=== PATIENT | female | born 1935 | race Caucasian/White ===

== ENCOUNTER 2017-01-06 14:46 | Emergency (ER) | payer MEDICARE ==
[2017-01-06 15:06] VITALS: BP 159/86
--- NOTE | 2017-01-06 15:18 | UC ---
UC General HPI - HPI Summary HPI Summary: 81 YEAR OLD FEMALE PRESENTS FOR CATHETER REMOVAL AFTER TUMOR SURGERY. THE PATIENT STILL HAS BLOOD CLOTS IN THE URINE SO I WILL HAVE HER WAIT UNTIL THE URINE BECOMES CLEAR. - History of Current Complaint Chief Complaint: UCGU Stated Complaint: CATHETER REMOVAL Time Seen by Provider: 01/06/17 15:10 Hx Obtained From: Patient Onset/Duration: Gradual Onset Onset Severity: Moderate Current Severity: Moderate - Allergy/Home Medications Allergies/Adverse Reactions: Allergies Allergy/AdvReac Type Severity Reaction Status Date / Time Phenobarbital Allergy Severe breathing Verified 01/06/17 15:07 problems? Phenytoin [From Dilantin] Allergy Severe breathing Verified 01/06/17 15:07 problems? Atorvastatin [From Lipitor] AdvReac Unknown Dizziness Verified 01/06/17 15:07 Carbamazepine [From Tegretol] AdvReac Unknown Dizziness Verified 01/06/17 15:07 Doxycycline AdvReac Unknown Dizziness Verified 01/06/17 15:07 Enalapril [From Vasotec] AdvReac Unknown Unknown Verified 01/06/17 15:07 Reaction Details Nifedipine [From Procardia] AdvReac Unknown Unknown Verified 01/06/17 15:07 Reaction Details Alendronate [From Fosamax] AdvReac Unknown Verified 01/06/17 15:07 Reaction Details Penicillin G AdvReac DOESN'T Verified 01/06/17 15:07 WORK Tetanus Toxoids AdvReac Unknown Verified 01/06/17 15:07 Reaction Details NO MRIS Allergy See Comment Uncoded 01/06/17 15:07 kidney dye AdvReac Unknown Unknown Uncoded 01/06/17 15:07 Reaction Details PMH/Surg Hx/FS Hx/Imm Hx Previously Healthy: Yes - Surgical History Surgical History: Yes Surgery Procedure, Year, and Place: BRAIN TUMOR REMOVED IN 1991. BLADDER CANCER SURGERIES X 30 OVER THE PAST 14 YEARS. 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 BILATERAL CATARACTS, hernia repair - Family History Known Family History: Positive: None - Social History Alcohol Use: None Substance Use Type: None Smoking Status (MU): Former Smoker Amount Used/How Often: 1 PPD X 14 YEARS Have You Smoked in the Last Year: No When Did the Patient Quit Smoking/Using Tobacco: 1975 Review of Systems Constitutional: Negative Skin: Negative Eyes: Negative ENT: Negative Respiratory: Negative Cardiovascular: Negative Gastrointestinal: Negative Genitourinary: Other - BLOOD CLOTS IN HER CATHETER Motor: Negative Neurovascular: Negative Musculoskeletal: Negative Neurological: Negative Psychological: Negative All Other Systems Reviewed And Are Negative: Yes Physical Exam Triage Information Reviewed: Yes Appearance: Well-Appearing Vital Signs: Initial Vital Signs Temp 37.5 C 01/06/17 15:03 Pulse 76 01/06/17 15:03 Resp 18 01/06/17 15:03 BP 159/86 01/06/17 15:03 Pulse Ox 97 01/06/17 15:03 Eye Exam: Normal ENT Exam: Normal Dental Exam: Normal Neck exam: Normal Neck: Positive: 1 Respiratory Exam: Normal Cardiovascular Exam: Normal Abdominal Exam: Normal Musculoskeletal Exam: Normal Neurological Exam: Normal Psychological Exam: Normal Skin Exam: Normal Course/Dx - Differential Dx - Multi-Symptom Provider Diagnoses: BLOOD CLOTS IN CATHETER BAG Discharge - Discharge Plan Condition: Stable Disposition: HOME Patient Education Materials: Dale Catheter Placement and Care (ED) Referrals: Nichole Green MD [Primary Care Provider] -
== END 2017-01-06 15:35 | disposition home or self-care (01) ==
LOC: UCEAST 14:46
DX: R31.9 Hematuria, unspecified (principal); Z87.891 Personal history of nicotine dependence
CPT/HCPCS: 99212; G0463

== ENCOUNTER 2017-01-09 09:22 | Emergency (ER) | payer MEDICARE ==
[2017-01-09] MEDS ORDERED: Ipratropium 0.5MG/2.5ML NEB* 0.5 MG/2.5 ML NEB.SOLN INH ONE (10:56)
[2017-01-09] MEDS ORDERED: Albuterol 2.5 MG/3 ML NEB.SOL* (0.083%) INH ONE (10:56)
--- NOTE | 2017-01-09 11:02 | RAD ---
Indication: Wheezing, right lower lobe crackles. 2 views of the chest demonstrate no mediastinal shift. Heart is of normal size and configuration. Calcification of the mitral valve annulus is noted. Lobulated right hemidiaphragm is noted. Overall no changes noted since July 16, 2012. IMPRESSION: No active cardiopulmonary disease is noted.
[2017-01-09 11:23] VITALS: BP 97/55
--- NOTE | 2017-01-09 11:24 | UC ---
Respiratory Complaint HPI - HPI Summary HPI Summary: 81 yo female with chills and cough x days has been wheezing about one week out from bladder surgery (bladdler [place]) no n/v - History of Current Complaint Chief Complaint: UCGeneralIllness Stated Complaint: COUGH CONGESTION Time Seen by Provider: 01/09/17 10:13 Hx Obtained From: Patient Onset/Duration: Gradual Onset, Lasting Days - 4 Timing: Constant Severity Initially: Mild Severity Currently: Moderate Pain Intensity: 0 Pain Scale Used: 0-10 Numeric Character: Cough: Productive - at times Aggravating Factors: Nothing Alleviating Factors: Nothing Associated Signs And Symptoms: Positive: Dyspnea - at times, Fever - caren, Chills , Wheezing, Nasal Congestion Related History: Similar Episode/Dx as: - bronchitis - Allergies/Home Medications Allergies/Adverse Reactions: Allergies Allergy/AdvReac Type Severity Reaction Status Date / Time Phenobarbital Allergy Severe breathing Verified 01/09/17 09:59 problems? Phenytoin [From Dilantin] Allergy Severe breathing Verified 01/09/17 09:59 problems? Atorvastatin [From Lipitor] AdvReac Unknown Dizziness Verified 01/09/17 09:59 Carbamazepine [From Tegretol] AdvReac Unknown Dizziness Verified 01/09/17 09:59 Doxycycline AdvReac Unknown Dizziness Verified 01/09/17 09:59 Enalapril [From Vasotec] AdvReac Unknown Unknown Verified 01/09/17 09:59 Reaction Details Nifedipine [From Procardia] AdvReac Unknown Unknown Verified 01/09/17 09:59 Reaction Details Alendronate [From Fosamax] AdvReac Unknown Verified 01/09/17 09:59 Reaction Details Penicillin G AdvReac DOESN'T Verified 01/09/17 09:59 WORK Tetanus Toxoids AdvReac Unknown Verified 01/09/17 09:59 Reaction Details NO MRIS Allergy See Comment Uncoded 01/09/17 09:59 kidney dye AdvReac Unknown Unknown Uncoded 01/09/17 09:59 Reaction Details PMH/Surg Hx/FS Hx/Imm Hx Previously Healthy: Yes Respiratory History: Bronchitis Cancer History: Other - bladder and multiple myeloma Other Cancer History: bladder and multiple myeloma - Surgical History Surgical History: Yes Surgery Procedure, Year, and Place: BRAIN TUMOR REMOVED IN 1991. BLADDER CANCER SURGERIES X 30 OVER THE PAST 14 YEARS. 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 BILATERAL CATARACTS, hernia repair - Family History Known Family History: Positive: Hypertension - Social History Alcohol Use: None Substance Use Type: None Smoking Status (MU): Former Smoker Amount Used/How Often: 1 PPD X 14 YEARS Have You Smoked in the Last Year: No When Did the Patient Quit Smoking/Using Tobacco: 1975 - Immunization History Most Recent Influenza Vaccination: fall 2015 Review of Systems Constitutional: Fever - caren, Chills, Fatigue Skin: Negative Eyes: Negative ENT: Negative Respiratory: Shortness Of Breath - wheezing, Cough Cardiovascular: Negative Gastrointestinal: Negative Genitourinary: Negative Motor: Negative Neurovascular: Negative Musculoskeletal: Negative Neurological: Negative Psychological: Negative Is Patient Immunocompromised?: No All Other Systems Reviewed And Are Negative: Yes Physical Exam Triage Information Reviewed: Yes Appearance: Well-Appearing, No Pain Distress, Well-Nourished Vital Signs: Initial Vital Signs Temp 99.4 F 01/09/17 10:04 Pulse 66 01/09/17 10:04 Resp 20 01/09/17 10:04 BP 102/57 01/09/17 10:04 Pulse Ox 96 01/09/17 10:04 Vital Signs Reviewed: Yes Eyes: Positive: Conjunctiva Clear ENT: Positive: Hearing grossly normal, Nasal congestion, Nasal drainage, TMs normal. Negative: Tonsillar swelling, Tonsillar exudate, Trismus, Muffled/ hoarse voice Dental: Negative: Abscess @ Neck: Positive: Supple, Nontender, No Lymphadenopathy Respiratory: Positive: Lungs clear, Normal breath sounds, No respiratory distress Cardiovascular: Positive: RRR, No Murmur Musculoskeletal: Positive: ROM Intact, No Edema Neurological: Positive: Alert, Muscle Tone Normal Psychological Exam: Normal Skin Exam: Normal UC Diagnostic Evaluation - Laboratory O2 Sat by Pulse Oximetry: 96 - birnak.niot hypoxic - Radiology Xray Interpretation: No Acute Changes Radiology Interpretation Completed By: Radiologist Re-Evaluation - Re-Evaluation First Eval Re-Evaluation Time: 11:39 Change: Improved - still wheezing but decreases wants to go home Respiratory Course/Dx - Differential Dx/Diagnosis Provider Diagnoses: acute bronchitis with bronchospasm Discharge - Discharge Plan Condition: Stable Disposition: HOME Prescriptions: Albuterol 2.5MG/3ML (0.083%)* [Ventolin 2.5 MG/3 ML NEB.YEVGENIY*] 2.5 mg INH QID PRN #1 neb.yevgeniy PRN Reason: Wheezing Amoxicillin/Clavulanate TAB* [Augmentin TAB 875*] 875 mg PO BID #14 tab Patient Education Materials: Acute Bronchitis (ED) Referrals: Nichole Green MD [Primary Care Provider] - 1 Day Additional Instructions: recheck for new or worsening symptoms I suggest you get rechecked tomorrow
[2017-01-09] MEDS ORDERED: Albuterol HFA INHALER* 8 gm MDI INH ONE (11:32)
== END 2017-01-09 12:00 | disposition home or self-care (01) ==
LOC: UCEAST 09:22
DX: J20.9 Acute bronchitis, unspecified (principal); Z85.51 Personal history of malignant neoplasm of bladder; Z85.79 Personal history of other malignant neoplasms of lymphoid, hematopoietic and related tissues; Z98.42 Cataract extraction status, left eye; Z98.41 Cataract extraction status, right eye; Z88.1 Allergy status to other antibiotic agents; Z88.0 Allergy status to penicillin; Z88.7 Allergy status to serum and vaccine; Z88.8 Allergy status to other drugs, medicaments and biological substances; Z87.891 Personal history of nicotine dependence
CPT/HCPCS: 71020; 99213; A9270-GY; G0463; J7644

== ENCOUNTER 2018-09-08 21:16 | Emergency (ER) | payer MEDICARE ==
--- NOTE | 2018-09-08 22:02 | ED ---
Lower Extremity - HPI Summary HPI Summary: Pt is an 82 y/o female who presents to the ED c/o RLE pain. Around 20:00 today she picked up a heavy box of dog food. Pt then had shoot pain down her right knee pain and posterior thigh pain. Pain is currently a 3/10 in severity, but becomes a 10/10 in severity with movement. She has difficulty ambulating. Pt denies any numbness. PMHx bladder CA, possible multiple myeloma. She has been having muscle aches recently and has an appointment with Dr. Jaquez tomorrow. - History of Current Complaint Chief Complaint: EDExtremityLower Stated Complaint: LEG PAIN PER EMS Time Seen by Provider: 09/08/18 21:33 Hx Obtained From: Patient Mechanism Of Injury: Other - lifting heavy box Onset/Duration: Still Present - 20:00 Severity Currently: Mild Pain Intensity: 3 Timing: Constant Location: Is Discrete @ - RLE Character Of Pain: Sharp - shooting Aggravating Factor(s): Movement - Allergies/Home Medications Allergies/Adverse Reactions: Allergies Allergy/AdvReac Type Severity Reaction Status Date / Time MS Phenobarbital Allergy Severe breathing Verified 01/09/17 09:59 [Phenobarbital] problems? MS Phenytoin [From Dilantin] Allergy Severe breathing Verified 01/09/17 09:59 problems? MS Atorvastatin AdvReac Unknown Dizziness Verified 01/09/17 09:59 [From Lipitor] MS Carbamazepine AdvReac Unknown Dizziness Verified 01/09/17 09:59 [From Tegretol] MS Doxycycline [Doxycycline] AdvReac Unknown Dizziness Verified 01/09/17 09:59 MS Enalapril [From Vasotec] AdvReac Unknown Unknown Verified 01/09/17 09:59 Reaction Details MS Nifedipine AdvReac Unknown Unknown Verified 01/09/17 09:59 [From Procardia] Reaction Details MS Alendronate [From Fosamax] AdvReac Unknown Verified 01/09/17 09:59 Reaction Details MS Penicillin G AdvReac DOESN'T Verified 01/09/17 09:59 [Penicillin G] WORK MS Tetanus Toxoids AdvReac Unknown Verified 01/09/17 09:59 [Tetanus Toxoids] Reaction Details NO MRIS Allergy See Comment Uncoded 01/09/17 09:59 kidney dye AdvReac Unknown Unknown Uncoded 01/09/17 09:59 Reaction Details PMH/Surg Hx/FS Hx/Imm Hx Endocrine/Hematology History: Denies: Hx Diabetes, Hx Thyroid Disease, Hx Anemia Cardiovascular History: Reports: Hx Hypercholesterolemia, Hx Hypertension, Hx Rheumatic Fever - A CHILLD, Other Cardiovascular Problems/Disorders - BLOOD CLOT IN GROIN AFTER A ANGIOGRAM ABOUT 10 YEARS Denies: Hx Pacemaker/ICD Respiratory History: Denies: Hx Asthma, Hx Chronic Obstructive Pulmonary Disease (COPD) GI History: Reports: Hx Irritable Bowel - CONSTIPATION Denies: Hx Jaundice, Hx Ulcer History: Reports: Other Problems/Disorders - CHRONIC BLADDER CANCER Musculoskeletal History: Reports: Hx Arthritis - RIGHT FOOT, Hx Osteoporosis, Other Musculoskeletal History - RIGHT SCIATICA AT TIMES Sensory History: Reports: Hx Cataracts, Hx Contacts or Glasses - GLASSES Denies: Hx Hearing Aid Opthamlomology History: Reports: Hx Cataracts, Hx Contacts or Glasses - GLASSES Neurological History: Reports: Other Neuro Impairments/Disorders - RIGHT SIDE SCIATICA AT TIMES Psychiatric History: Reports: Hx Depression - ON MEDICATION FOR - Cancer History Cancer Type, Location and Year: Bladder. multiple myeloma (possible) Hx Chemotherapy: Yes - FOR THE BLADDER - Surgical History Surgery Procedure, Year, and Place: BRAIN TUMOR REMOVED IN 1991. BLADDER CANCER SURGERIES X 30 OVER THE PAST 14 YEARS. 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 BILATERAL CATARACTS, hernia repair Hx Anesthesia Reactions: No Infectious Disease History: No Infectious Disease History: Denies: Hx Clostridium Difficile, Hx Hepatitis, Hx Human Immunodeficiency Virus (HIV), Hx of Known/Suspected MRSA, Hx Shingles, Hx Tuberculosis, Hx Known/ Suspected VRE, Hx Known/Suspected VRSA, Traveled Outside the [place] in Last 30 Days - Family History Known Family History: Positive: Hypertension - Social History Alcohol Use: None Hx Substance Use: No Substance Use Type: Reports: None Hx Tobacco Use: Yes Smoking Status (MU): Former Smoker Amount Used/How Often: 1 PPD X 14 YEARS Have You Smoked in the Last Year: No Review of Systems Positive: Myalgia - right knee and thigh, Other - difficulty ambulating Negative: Numbness All Other Systems Reviewed And Are Negative: Yes Physical Exam - Summary Physical Exam Summary: Appearance: well appearing, no pain distress Skin: warm, dry, reflects adequate perfusion Head/face: normal Eyes: EOMI, BULL ENT: mucous membranes moist Neck: supple, non-tender Respiratory: CTA, breath sounds present Cardiovascular: RRR, pulses symmetrical Abdomen: non-tender, soft Bowel Sounds: present Musculoskeletal: pain with flexion in distal and mid right femur, no warmth or palpable tenderness Neuro: normal, sensory motor intact, A&Ox3 Triage Information Reviewed: Yes Vital Signs On Initial Exam: Initial Vitals Temp Pulse Resp BP Pulse Ox 97.9 F 64 18 153/83 97 09/08/18 21:20 09/08/18 21:20 09/08/18 21:20 09/08/18 21:20 09/08/18 21:20 Vital Signs Reviewed: Yes Diagnostics - Vital Signs Vital Signs Temp Pulse Resp BP Pulse Ox 09/08/18 21:25 153/83 09/08/18 21:20 97.9 F 64 18 153/83 97 - Laboratory Lab Statement: Any lab studies that have been ordered have been reviewed, and results considered in the medical decision making process. - Radiology Knee XR Radiology Interpretation Completed By: ED Physician Summary of Radiographic Findings: Degenerative changes. No pathologic fracture or lytic lesions. Pending official radiology report. Femur XR Radiology Interpretation Completed By: ED Physician Summary of Radiographic Findings: Degenerative changes. No pathologic fracture or lytic lesions. Pending official radiology report. Lower Extremity Course/Dx - Course Course Of Treatment: Patient with a history of multiple myeloma that she states is smoldering in nature. She presents with right thigh pain and knee pain after trivial injury while lifting a box. There is no snap or pop in the knee. X-rays are negative other than degenerative process. She was placed in an Arnoldo wrap and given crutches. She was treated for pain and will follow-up with her oncologist. - Diagnoses Differential Diagnosis/HQI/PQRI: Positive: Other - Muscle strain, pathologic fracture, acute fracture, DVT Provider Diagnoses: History of multiple myeloma, Right leg pain Discharge - Sign-Out/Discharge Documenting (check all that apply): Patient Departure - Discharge Patient Received Moderate/Deep Sedation with Procedure: No - Discharge Plan Condition: Improved Disposition: HOME Prescriptions: Cyclobenzaprine (NF) [Cyclobenzaprine 5 MG (NF)] 5 mg PO TID PRN #10 tab PRN Reason: muscle pain Naproxen [Naproxen 250 mg tab] 250 mg PO BID PRN #10 tablet PRN Reason: leg pain Patient Education Materials: Leg Pain (ED) Referrals: Asif Moon MD [Primary Care Provider] - Remington Jaquez MD [Medical Doctor] - Additional Instructions: Crutch walk as needed. Ice sore areas. Call your doctor first thing in the morning to schedule follow-up. Return if worse, new symptoms or other concerns. - Billing Disposition and Condition Condition: IMPROVED Disposition: Home - Attestation Statements Document Initiated by Carolibe: Yes Documenting Scribe: Stephanie Nielsen Provider For Whom Lolly is Documenting (Include Credential): Manjeet Mack MD Scribe Attestation: IStephanie, scribed for Manjeet Mack MD on 09/09/18 at 0308. Scribe Documentation Reviewed: Yes Provider Attestation: The documentation as recorded by the scribeStephanie accurately reflects the service I personally performed and the decisions made by me, Manjeet Mack MD Status of Scribe Document: Viewed
--- OUTSIDE RECORDS SUMMARY | 2018-09-08 22:06 | XMS REPORT | Continuity of Care Document ---
:1935 External Reference #:[id number] Author Name Flaco Spencer MD Address [address] [place] [address] Care Team Providers Name Role Phone Remington Jaquez MD Care Team Information Accounts Receivable Manager Unavailable Nichole Green M.D. Primary Care Physician Unavailable Payers Date Identification Numbers Payment Provider Subscriber Policy Number: [id number] [place] [employer] [employer] Luis Alberto Quinn PayID: [id number] [address] [place] [address] Policy Number: [id number] Aarp Luis Alberto Quinn PayID: [id number] [address] [place] [address] Advance Directives Description No Information Available Problems Description No Information Family History Date Family Member(s) Observation Comments General Cancer General Migraine General Vertigo Social History Type Date Description Comments Sex Unknown Occupation Retired Tobacco Use Start: Unknown End: Unknown Former Cigarette Smoker 1 Pack Daily Cigarette Use for 24 years Tobacco Use Start: Unknown Never Smoked Cigars Tobacco Use Start: Unknown Never Smoked A Pipe Smokeless Tobacco Never Used Smokeless Tobacco ETOH Use Denies alcohol use Tobacco Use Start: Unknown End: Unknown Patient is a former smoker Allergies, Adverse Reactions, Alerts Active Allergies Reaction Severity Comments Date Tetanus 08/13/2016 Contrast Dye 08/13/2016 Dilantin 08/13/2016 Doxycycline 08/13/2016 Lipitor 08/13/2016 Phenobarbital 08/13/2016 sulfa 08/13/2016 Arnoldo Inhibitors 08/13/2016 Ciprofloxacin 08/13/2016 Fosamax 08/13/2016 Tegretol 08/13/2016 Vasotec 08/13/2016 Procardia 08/13/2016 Pentobarbital 08/13/2016 Medications Active Medications SIG Qnty Indications Ordering Provider Date Citalopram Unknown Hydrobromide 20mg Tablets Simvastatin Unknown 20mg Tablets Ramipril Take One Capsule Unknown 10mg Capsules By Mouth Every Day Colace 1 by mouth twice a Unknown 100mg Capsules day Multivitamin Adults as directed Unknown 50+ Adlt 50+ Tablets Vitamin D 1 by mouth every Unknown 1000Unit day Tablets Loratadine 1 a day Unknown 10mg Capsules History Medications Aspirin Adult Low Strength daily Unknown - 09/02/2018 81mg Chewtabs Immunizations Description No Information Available Vital Signs Date Vital Result Comment 09/03/2018 11:03am Weight 162.00 lb Weight 73.483 kg Height 61 inches 5'1" Height in cm's 154.9 cm BMI (Body Mass Index) 30.6 kg/m2 08/13/2016 9:56am BP Systolic 176 mmHg BP Diastolic 88 mmHg Heart Rate 67 /min Weight 162.00 lb Weight 73.483 kg Height 61 inches 5'1" Height in cm's 154.9 cm BMI (Body Mass Index) 30.6 kg/m2 Results Test Date Facility Test Result H/L Range Note Laboratory test 10/10/2016 [facility] Cytology SEE RESULT 1 finding c/o [facility] [employer] [place] [address] [phone] 1 SEE RESULT BELOW Name: LUIS ALBERTO QUINN : [address]: Leonid Coto MD Acct: [id number] Unit: [id number] AGE: 81 Location: THYROID Re10/10/16 SEX: F Status: REG REF SPEC: [id number] JUANITA: 10/10/16-[address] [facility] [address]: Leonid Coto MD REQ: [id number] RECD: 10/10/16123 STATUS: DAVID ARTEAGA DR: Nichole Shabazz MD _ ORDERED: FNA-IMG GUID BX, CYTO ADEQ-1ST P FINAL DIAGNOSIS Thyroid, right, Ultrasound guided, fine needle aspiration: Benign thyroid nodule-colloid/hyperplastic (Henderson class II). The specimen demonstrates moderate watery colloid, a moderate amount of benign appearing follicular epithelium arranged in uniform sheets, medium sized follicles and only occasional small groups. No features of papillary carcinoma are seen. In this clinical setting the risk of malignancy is less than 3%. Clinical management of this thyroid nodule should be based on clinical and radiographic features as well as the above. THYROID RIGHT - US GUIDED FINE NEEDLE ASPIRATION CLINICAL HISTORY Right lobe-1.6x 1.3x 1.6cm CONTINUED ON NEXT PAGE * ML=Testing performed at Main Lab DEPARTMENT OF PATHOLOGY, [address] [place] [address] Cameron Seth M.D. Director [facility] # [id number] RUN DATE: 10/10/16 [facility] LAB LIVE PAGE 2 Patient: LUIS ALBERTO QUINN [id number] (Continued) IMMEDIATE INTERPRETATION (Continued) IMMEDIATE INTERPRETATION Pass 1-adequate GROSS DESCRIPTION 1- alcohol fixed slide(s) 1 - passes Signed (signature on file) Cameron Seth MD 1204 END OF REPORT * ML=Testing performed at Main Lab DEPARTMENT OF PATHOLOGY, [address] [place] [address] Cameron Seth M.D. Director [facility] # [id number] Procedures Date Code Description Status 09/03/2018 95165 Tympanometry Completed 09/03/2018 66225 Comprehensive Audiogram Completed Encounters Type Date Location Provider Dx Diagnosis Office Visit 09/03/2018 [place] Flaco Barboza M27.2 Inflammatory 10:00a 04/28/07 MD Tj conditions of jaws H81.10 Benign paroxysmal vertigo, unspecified ear Office Visit 08/13/2016 [place],After Flaco Barboza E04.2 Nontoxic 10:15a 04/28/07 MD Tj multinodular goiter Plan of Treatment No Information Available
[2018-09-08] MEDS ORDERED: HYDROcodone/ACETAMIN 5-325 MG* 1 TAB PO ONE (22:16)
[2018-09-08] MEDS ORDERED: Ketorolac INJ* 60 MG/2 ML VIAL IM ONE (22:42)
[2018-09-08 23:18] VITALS: BP 160/69
== END 2018-09-08 23:17 | disposition home or self-care (01) ==
LOC: ED 21:16
DX: M79.604 Pain in right leg (principal); Z85.79 Personal history of other malignant neoplasms of lymphoid, hematopoietic and related tissues; M25.461 Effusion, right knee; M11.261 Other chondrocalcinosis, right knee; I10 Essential (primary) hypertension; E78.00 Pure hypercholesterolemia, unspecified; K58.1 Irritable bowel syndrome with constipation; M81.0 Age-related osteoporosis without current pathological fracture; M13.871 Other specified arthritis, right ankle and foot; F32.9 Major depressive disorder, single episode, unspecified; Z85.51 Personal history of malignant neoplasm of bladder; Z88.8 Allergy status to other drugs, medicaments and biological substances; Z88.0 Allergy status to penicillin; Z91.041 Radiographic dye allergy status; Z86.718 Personal history of other venous thrombosis and embolism; Z79.899 Other long term (current) drug therapy; Z87.891 Personal history of nicotine dependence
CPT/HCPCS: 96372; 99283; J1885

== ENCOUNTER 2019-01-21 14:48 | Emergency (ER) | payer MEDICARE ==
[2019-01-21 15:56] VITALS: BP 144/71
--- NOTE | 2019-01-21 15:58 | UC ---
Skin Complaint HPI - HPI Summary HPI Summary: Patient is an 83yo female presenting with right second toe pain and swelling x2 days. She denies injury. States she often files her toenails. Notes pain only to touch. Denies any drainage. Denies fever and chills. Denies decreased ROM or sensation. Took tylenol this morning for pain relief. - History of Current Complaint Chief Complaint: UCLowerExtremity Stated Complaint: SORE ON TOE Hx Obtained From: Patient Hx Last Menstrual Period: post Onset/Duration: Sudden Onset, Lasting Days Onset Severity: Mild Current Severity: Mild Pain Intensity: 4 Pain Scale Used: 0-10 Numeric - Allergy/Home Medications Allergies/Adverse Reactions: Allergies Allergy/AdvReac Type Severity Reaction Status Date / Time MS Phenobarbital Allergy Severe breathing Verified 01/21/19 15:57 [Phenobarbital] problems? MS Phenytoin [From Dilantin] Allergy Severe breathing Verified 01/21/19 15:57 problems? MS Atorvastatin AdvReac Unknown Dizziness Verified 01/21/19 15:57 [From Lipitor] MS Carbamazepine AdvReac Unknown Dizziness Verified 01/21/19 15:57 [From Tegretol] MS Doxycycline [Doxycycline] AdvReac Unknown Dizziness Verified 01/21/19 15:57 MS Enalapril [From Vasotec] AdvReac Unknown Unknown Verified 01/21/19 15:57 Reaction Details MS Nifedipine AdvReac Unknown Unknown Verified 01/21/19 15:57 [From Procardia] Reaction Details MS Alendronate [From Fosamax] AdvReac Unknown Verified 01/21/19 15:57 Reaction Details MS Penicillin G AdvReac DOESN'T Verified 01/21/19 15:57 [Penicillin G] WORK MS Tetanus Toxoids AdvReac Unknown Verified 01/21/19 15:57 [Tetanus Toxoids] Reaction Details NO MRIS Allergy See Comment Uncoded 01/21/19 15:57 kidney dye AdvReac Unknown Unknown Uncoded 01/21/19 15:57 Reaction Details Home Medications: Home Medications Cholecalciferol TAB* [Vitamin D TAB*] 500 unit PO DAILY 01/21/19 [History Confirmed 01/21/19] PMH/Surg Hx/FS Hx/Imm Hx Cancer History: Other - bladder cancer - Surgical History Surgical History: Yes Surgery Procedure, Year, and Place: BRAIN TUMOR REMOVED IN 1991. BLADDER CANCER SURGERIES X 30 OVER THE PAST 14 YEARS. 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 BILATERAL CATARACTS, hernia repair - Family History Known Family History: Positive: Hypertension, Non-Contributory - Social History Alcohol Use: None Substance Use Type: None Smoking Status (MU): Former Smoker Amount Used/How Often: 1 PPD X 14 YEARS Have You Smoked in the Last Year: No When Did the Patient Quit Smoking/Using Tobacco: 1975 - Immunization History Most Recent Influenza Vaccination: fall 2015 Review of Systems All Other Systems Reviewed And Are Negative: Yes Constitutional: Positive: Negative. Negative: Fever, Chills, Fatigue Skin: Positive: Other - redness and swelling of rt second toe Respiratory: Positive: Negative Cardiovascular: Positive: Negative Motor: Positive: Negative Neurovascular: Positive: Negative Neurological: Positive: Negative Psychological: Positive: Negative Physical Exam Triage Information Reviewed: Yes Appearance: Well-Appearing, No Pain Distress, Well-Nourished Vital Signs: Initial Vital Signs Temp 98 F 01/21/19 15:47 Pulse 69 01/21/19 15:47 Resp 16 01/21/19 15:47 BP 144/71 01/21/19 15:47 Pulse Ox 98 01/21/19 15:47 Vital Signs Reviewed: Yes Eyes: Positive: Conjunctiva Clear ENT: Positive: Hearing grossly normal Neck: Positive: Supple Respiratory: Positive: No respiratory distress Cardiovascular: Positive: Pulses Normal, Brisk Capillary Refill Musculoskeletal Exam: Normal Musculoskeletal: Positive: Strength Intact, ROM Intact Neurological: Positive: Alert Psychological: Positive: Age Appropriate Behavior Skin: Positive: Other - paronychia noted on medial aspect of right second toenail. noted drainage or fluctuance noted. erythema and edema noted. Course/Dx - Course Course Of Treatment: Educated patient about paronychia. Instructed her to take Keflex as prescribed for the treatment of infection. I told her to do warm soaks or compresses and that she may take ibuprofen and/or tylenol as directed for pain relief. She was instructed to follow up with the [facility] or Physician Referral as listed below if symptoms persist. Instructed to go to the ED if she experiences fever, increasing redness and warmth to the area, drainage from the area, or nausea and vomiting. Patient voiced understanding and agreed to the treatment plan. - Diagnoses Provider Diagnosis: Paronychia of second toe, right Discharge ED - Sign-Out/Discharge Documenting (check all that apply): Patient Departure All imaging exams completed and their final reports reviewed: No Studies - Discharge Plan Condition: Stable Disposition: HOME Prescriptions: Cephalexin CAP* [Keflex CAP*] 500 mg PO BID #9 cap Patient Education Materials: [place] (ED) Referrals: Miriam Rubio MD [Primary Care Provider] - If Needed Additional Instructions: As discussed, take Keflex as prescribed for the treatment of your skin infection. You may do warm soaks or compresses to the area. You may take ibuprofen and tylenol as directed for pain relief. Follow up with you PCP listed below if your symptoms persist. Go to the emergency room if you experience fever, increasing redness and warmth to the area, drainage, or nausea and vomiting. - Billing Disposition and Condition Condition: STABLE Disposition: Home
--- OUTSIDE RECORDS SUMMARY | 2019-01-21 16:00 | XMS REPORT | Summary of Care ---
:1935 Author Organization [facility] Address [address] [facility] [place] [address] Care Team Providers Name Role Phone Saba Collins MD Primary Care Provider Reason for Visit Reason Comments Establish Care Encounter Details Date Type Department Care Team Description 12/23/2018 Office Visit [facility] Giselleariato, Memory problem (Primary Dx); Practice Miriam Cox MD Smoldering multiple myeloma (HCC); [address] [facility] Malignant neoplasm of urinary bladder, unspecified site ([facility]); [place] [address] [place] [address] Arthritis of both knees; [phone] Vegetarian; Mixed hyperlipidemia; Osteoporosis, unspecified osteoporosis type, unspecified pathological fracture presence; Cervicalgia; Hypertension, unspecified type; Hyperlipidemia, unspecified hyperlipidemia type Allergies Active Allergy Reactions Severity Noted Date Comments Atorvastatin PT SKILLED Reaction 02/21/2016 dizziness Carbamazepine Other, PT SKILLED Reaction Low 08/31/2012 dizziness Ciprofloxacin Hcl Other 12/23/[address] Dye GI Reaction Medium 05/30/2011 Nausea, vomiting Doxy Other Low 12/23/2018 Dizziness and fatigue Enalapril Other 12/23/2018 Itchinig, hives Estradiol Dermatologic Reaction 05/27/2016 itching Fosamax Other 08/31/2012 Problem with your teeth Nifedipine PT SKILLED Reaction Low 12/23/2018 headache Pentobarbital Other Low 12/23/2018 Slow to wake up Phenobarbital Other Low 12/23/2018 dizziness Sulfa Antibiotics Other Low 12/23/2018 Dizziness Tetanus Toxoid Respiratory Reaction High 12/23/2018 Short of breath Tetanus Toxoids Hives, Other High 02/21/2016 documented as of this encounter (statuses as of 12/23/2018) Medications Medication Sig Dispensed Refills Start Date End Date Status Sennosides (SENNA-EX Take by 0 Active PO) mouth. MULTIPLE VITAMIN PO Take by 0 Active mouth. RAMIPRIL PO Take 10 mg by 0 Active mouth DAILY. LORATADINE PO Take 10 mg by 0 Active mouth DAILY NEEDED. citalopram (CELEXA) Take 20 mg by 0 Active 20 MG Oral Tab mouth DAILY. simvastatin (ZOCOR) Take 20 mg by 0 Active 20 MG Oral Tab mouth DAILY. Cholecalciferol Take 1,000 0 Active (VITAMIN D3) 1000 Units by units Oral Cap mouth DAILY. polyethylene glycol Take 17 g by 0 Active (MIRALAX) Oral Pack mouth DAILY NEEDED. polyvinyl alcohol Place 1 Drop 0 Active (ARTIFICIAL TEARS) to the 1.4 % Ophthalmic external eye Solution DAILY NEEDED. docusate sodium Take 100 mg 0 Active (COLACE) 50 MG Oral by mouth TWO Cap TIMES DAILY NEEDED. SIMVASTATIN PO Take by 0 12/24/19 Discontinued mouth. 19 (Duplicate Order) CITALOPRAM Take by 0 12/24/19 Discontinued HYDROBROMIDE PO mouth. 19 (Duplicate Order) Cholecalciferol Take by 0 12/24/19 Discontinued (VITAMIN D PO) mouth. 19 documented as of this encounter (statuses as of 12/23/2018) Active Problems Problem Noted Date Smoldering multiple myeloma Overview: Dr Jaquez Osteoporosis Cervicalgia Bladder cancer Overview: sees Dr Jaquez Arthritis of both knees Overview: severe Hypertension Hyperlipidemia Depression Urinary incontinence documented as of this encounter (statuses as of 12/23/2018) Social History Tobacco Use Types Packs/Day Years Used Date Former Smoker 1.5 33 Smokeless Tobacco: Never Used Comments: quit age [age] Alcohol Use Drinks/Week oz/Week Comments Never Alcohol Habits Answer Date Recorded How often do you have a drink containing alcohol? Never 12/23/2018 How many drinks containing alcohol do you have on a typical Not asked day when you are drinking? How often do you have six or more drinks on one occasion? Not asked Sex Assigned at Date Recorded Not on file Job Start Date Occupation Industry Not on file Not on file Not on file Travel History Travel Start Travel End No recent travel history available. documented as of this encounter Last Filed Vital Signs Vital Sign Reading Time Taken Comments Blood Pressure 138/80 12/23/2018 11:09 AM EDT Pulse 63 12/23/2018 11:09 AM EDT Temperature - - Respiratory Rate - - Oxygen Saturation 96% 12/23/2018 11:09 AM EDT Inhaled Oxygen Concentration - - Weight 67.6 kg (149 lb) 12/23/2018 11:09 AM EDT Height 149.9 cm (4' 11") 12/23/2018 11:09 AM EDT Body Mass Index 30.09 12/23/2018 11:09 AM EDT documented in this encounter Patient Instructions Patient InstructionsMiriam Rubio MD - 12/23/2018 10:40 AM EDTWelcome to [facility]. I encourage you to sign up for e-EDMdesigner for on-line access. We have a lot of information to gather, including your med list and allergies. I had you sign a release of information from your other doctors. I ordered laboratory tests today and will send you results. DIET AND EXERCISE: Exercise is recommended 150 minutes weekly: 30 minutes five days a week of moderate exercise such as walking. In addition is it recommended you have two days weekly of working all your major muscle groups (arms, legs) such as with weight lifting or other exercise. I recommend a well balanced healthy diet, portion control, drink plenty of fluids. The Mediterranean diet is an excellent diet. Be sure to get adequate sleep at night, 8 hours. If you cannot make an appointment please call to cancel 24 hours in advance so that appointment timecan be made available for another person. documented in this encounter Progress Notes Miriam Rubio MD - 12/23/2018 10:40 AM EDT Nursing Notes: Tereza Luna LPN 12/23/2018 11:16 AM Signed Chief Complaint Patient presents with [facility] Depression Screening Over the last 2 weeks, have you been feeling down, depressed, anxious, or hopeless?: Not at all Over the past 2 weeks, have you felt little interest or pleasure in doing things ?: Not at all Oncologist: Dr Jaquez, smoldering Myeloma, chronic bladder cancer Urologist: Dr Alba, [facility] for bladder cancer Orthopedics: Dr Cowan Chief Complaint: Ernestina Gonzalez is a 83-y.o. female who presents for Establishment of care visit. History of Present Illness: Prior PCP [facility], Cameron ZENDEJAS Here with her . Primary concerns today: Establishing care, wants an MD Fatigue, chronic neck and knee pain, forgetful Hx cancer. She forgot her med and allergy list and is really not sure of her medications and allergies. Care everywhere reviewed for some of her information after her visit. Allergies listed: Arnoldo Inhibitors Itching 02/21/2016 Ciprofloxacin 02/21/2016 Unsure Iodinated Diagnostic Agents Nausea And Vomiting 02/21/2016 Phenytoin Sodium Extended Other (See Comments) 02/21/2016 Elevated liver enzymes Doxycycline Other (See Comments) 02/21/2016 Dizziness & fatigue Estradiol Itching 05/27/2016 Atorvastatin Other (See Comments) 02/21/2016 dizziness Pentobarbital Other (See Comments) 02/21/2016 Slow to wake up Phenobarbital Other (See Comments) 02/21/2016 dizziness Nifedipine Other (See Comments) 02/21/2016 headache Sulfa Antibiotics Other (See Comments) 02/21/2016 dizziness Carbamazepine Other (See Comments) 02/21/2016 dizziness Tetanus Toxoids Hives, Shortness Of Breath High 02/21/2016 Enalapril Maleate Hives, Other (See Comments) 02/21/2016 coughing Problems listed: Urinary urgency 02/28/2016 Malignant neoplasm of urinary bladder Urinary frequency Urinary incontinence Arthritis Depression Dizziness Hypertension Hyperlipemia Surgeries listed: Surgery Date Site/Laterality Comments BRAIN SURGERY 04/28/1991 - 04/27/1992 benign menengioma BLADDER SURGERY 04/28/2000 - 04/27/2001 36 times TONSILLECTOMY Surgery Date Laterality Comments 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 02/09/1992 [place]- no problems cystoscopy x24 since 2001 cataracts 2010 Bilateral no problems TURBT several; 12/2012 [place]- no problems (LMA 01/08) TUBAL LIGATION distant past Bilateral no problems TONSILLECTOMY childhood GA TOOTH EXTRACTION teenager problems awakening after Na pentathol [Other] CT CYSTOURETHROSCOPY,FULGUR >5 CM LESN 12/27/2014 N/A Procedure: TURBT, retros ; Surgeon: Melvin Alba MD; Location: [facility]; Service: Urology CT INC IMPLTJ NEUROSTIMULATOR ELTRD SACRAL NERVE 09/11/2015 N/A Procedure: INTERSTIM ELECTRICAL STIMULATION PART 1 ; Surgeon: Satinder Colón MD; Location: [facility]; Service: Urology CT IMPLANT PERIPH/GASTRIC NEUROSTIM/POWER PLANT OPERATIONS MANAGER 09/26/2015 N/A Procedure: INTERSTIM ELECTRICAL STIMULATION PART 2, (NOT BEFORE 1200); Surgeon: Satinder Colón MD; Location: [facility]; Service: Urology CT CYSTOURETHROSCOPY,FULGUR >5 CM LESN 06/04/2016 N/A Procedure: TURBT with Cysview; Surgeon: Melvin Alba MD; Location: [facility]; Service: Urology CT CYSTO/URETERO/PYELOSCOPY, DX 06/27/2016 Right Procedure: Diagnostis URETEROSCOPY, ; Surgeon: Melvin Alba MD; Location: [facility]; Service: Urology CT CYSTOURETHROSCOPY,FULGUR >5 CM LESN 01/02/2017 N/A Procedure: TURBT, retrograde pyelogram, w/ blue light cystoscopy; Surgeon: Melvin Alba MD; Location: [facility]; Service: Urology CT CYSTOURETHROSCOPY,FULGUR >5 CM LESN 09/18/2017 N/A Procedure: TURBT, retrogrades, ureteroscopy,possible stent, need fluoro - have laser; Surgeon: Melvin Alba MD; Location: [facility]; Service: Urology CT CYSTOURETHROSCOPY,FULGUR >5 CM LESN 06/19/2018 Bilateral Procedure: TURBT, bilateral retrogradepyelograms, instillation of gemcitabine; Surgeon: Melvin Alba MD; Location: [facility]; Service: Urology Prescription Sig. Disp. Refills Start Date End Date Status simvastatin (ZOCOR) 20 MG tablet Take 20 mg by mouth nightly. Active Loratadine 10 MG CAPS Take 1 tablet by mouth at bedtime Active ramipril (ALTACE) 10 MG capsule Take 10 mg by mouth at bedtime 01/12/2009 Active aspirin 81 MG tablet Take 81 mg by mouth at bedtime Active Multiple Vitamins-Minerals (CENTRUM SILVER ADULT 50+ PO) Take 1 tablet by mouth at bedtime Active cholecalciferol (VITAMIN D) 1000 UNIT capsule Take 1,000 Units by mouth at bedtime Active Dave Caitlin (PREPARATION H EX) Apply topically as needed Active citalopram (CELEXA) 20 MG tablet Take 20 mg by mouth at bedtime Active ,artificial tears, polyvinyl alcohol (LIQUIFILM TEARS) 1.4 % ophthalmic solution Place 1 drop into both eyes as needed for Dry Eyes Active Docusate Sodium (DOCULASE PO) Take 100 mg by mouth as needed Active polyethylene glycol (GLYCOLAX,MIRALAX) powder packet Take 17 g by mouth daily as needed Active amoxicillin-clavulanate (AUGMENTIN XR) 1000-62.5 MG 12 hr tablet Take by mouth 2 times daily Active nitrofurantoin monohydrate macrocrystal (MACROBID) 100 MG capsule Take 1 capsule (100 mg total)by mouth 2 times daily 14 capsule 0 07/13/2018 Active Patient Active Problem List Diagnosis Smoldering multiple myeloma (HCC) Osteoporosis Cervicalgia Bladder cancer (HCC) Arthritis of both knees Hypertension Hyperlipidemia Depression Urinary incontinence Past Medical History: Diagnosis Date Arthritis of both knees severe Bladder cancer (HCC) sees Dr Jaquez Cervicalgia Depression Dizziness Hx of deep venous thrombosis right groin, years ago Hx of resection of meningioma Hyperlipidemia Hypertension Osteoporosis Smoldering multiple myeloma (HCC) Dr Jaquez Urinary incontinence Past Surgical History: Procedure Laterality Date CYSTOSCOPY many over the years LAPAROSCOPIC TUBAL LIGATION CT EXCIS CANCER URETHRA many over the years CT EXCIS INFRATENT MENINGIOMA 02/09/1992 parietal lobe TONSILLECTOMY Current Outpatient Medications: Cholecalciferol (VITAMIN D3) 1000 units Oral Cap, Take 1,000 Units by mouth DAILY., Disp: , Rfl: citalopram (CELEXA) 20 MG Oral Tab, Take 20 mg by mouth DAILY., Disp: , Rfl: docusate sodium (COLACE) 50 MG Oral Cap, Take 100 mg by mouth TWO TIMES DAILY NEEDED., Disp: , Rfl: LORATADINE PO, Take 10 mg by mouth DAILY NEEDED., Disp: , Rfl: MULTIPLE VITAMIN PO, Take by mouth., Disp: , Rfl: polyethylene glycol (MIRALAX) Oral Pack, Take 17 g by mouth DAILY NEEDED., Disp: , Rfl: polyvinyl alcohol (ARTIFICIAL TEARS) 1.4 % Ophthalmic Solution, Place 1 Drop to the externaleye DAILY NEEDED., Disp: , Rfl: RAMIPRIL PO, Take 10 mg by mouth DAILY., Disp: , Rfl: Sennosides (SENNA-EX PO), Take by mouth., Disp: , Rfl: simvastatin (ZOCOR) 20 MG Oral Tab, Take 20 mg by mouth DAILY., Disp: , Rfl: Obtained from [facility] Allergies Allergen Reactions Tetanus Toxoid Respiratory Reaction Short of breath Tetanus Toxoids Hives and Other Ct Dye GI Reaction Nausea, vomiting Atorvastatin PT SKILLED Reaction dizziness Ciprofloxacin Hcl Other unsure Enalapril Other Itchinig, hives Estradiol Dermatologic Reaction itching Fosamax Other Problem with your teeth Carbamazepine Other and PT SKILLED Reaction dizziness Doxy Other Dizziness and fatigue Nifedipine PT SKILLED Reaction headache Pentobarbital Other Slow to wake up Phenobarbital Other dizziness Sulfa Antibiotics Other Dizziness Social History Socioeconomic History Marital status: Spouse name: Not on file Number of children: Not on file Years of education: Not on file Highest education level: Not on file Occupational History Not on file Social Needs Financial resource strain: Not on file Food insecurity: Worry: Not on file Inability: Not on file Transportation needs: Medical: Not on file Non-medical: Not on file Tobacco Use Smoking status: Former Smoker Packs/day: 1.50 Years: 33.00 Pack years: 49.50 Smokeless tobacco: Never Used Tobacco comment: quit age [age] Substance and Sexual Activity Alcohol use: Never Frequency: Never Drug use: Never Sexual activity: Yes Partners: Male Lifestyle Physical activity: Days per week: Not on file Minutes per session: Not on file Stress: Not on file Relationships Social connections: Talks on phone: Not on file Gets together: Not on file Attends protestant service: Not on file Active member of club or organization: Not on file Attends meetings of clubs or organizations: Not on file Relationship status: Not on file Intimate partner violence: Fear of current or ex partner: Not on file Emotionally abused: Not on file Physically abused: Not on file Forced sexual activity: Not on file Other Topics Concern Not on file Social History Narrative Lives with , 2nd; originally from [facility]. 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 Pets: dog Family History Problem Relation Age of Onset Parkinson's Mother Alzheimer's Disease Father No Known Problems Son No Known Problems Son No Known Problems Son Health Maintenance Topic Date Due MEDICARE ANNUAL WELLNESS VISIT 1935 ZOSTER IMMUNIZATION SERIES (1 of 2) 09/30/1985 FALL RISK ASSESSMENT 09/30/2000 PNEUMOCOCCAL 65+YRS (1 of 2 - PCV13) 09/30/2000 INFLUENZA VACCINE (1) 12/27/2018 DEPRESSION SCREENING 12/24/2019 HPV IMMUNIZATION SERIES Aged Out MENINGOCOCCAL VACCINE IMM Aged Out Review of Systems - General ROS: negative for - chills or fever, unexpected weight changes; complains of fatigue ENT ROS: negative for - headaches,visual changes Respiratory ROS: negative for - cough, or shortness of breath Cardiovascular ROS: negative for - chest pain, dyspnea on exertion,palpitations ; Has frequent swelling of right ankle/edema Gastrointestinal ROS: no abdominal pain, change in bowel habits, or black or bloody stools Genito-Urinary ROS: no dysuria Neuro: denies headache, focal weakness, numbness; is unsteady on her feet and Dr Cowan told her to use a walker always.; has memory concerns but says her score was 29/30 on her MMS with prior provider. Psych: Denies depression PHYSICAL EXAMINATION: BP 138/80 (BP Location: Right arm, Patient Position: Sitting) | Pulse 63 | Ht 4' 11" (1.499 m) | Wt 149 lb (67.6 kg) | SpO2 96% | ? No | BMI 30.09 kg/m Physical Examination: General appearance - alert, well appearing, and in no distress Mental status - alert, oriented to person, place, and time, normal mood, behavior, speech, dress, motor activity, and thought processes Eyes - pupils equal and reactive, extraocular eye movements intact, sclera anicteric Ears - bilateral TM's and external ear canals normal Neck - supple, no cervical or supraclavicular adenopathy, carotids upstroke normal bilaterally, no bruits, thyroid exam: thyroid is normal in size without nodules or tenderness, no neck masses palpated. Chest/Lungs - clear to auscultation, no wheezes, rales or rhonchi, symmetric air entry, good aeration Heart - normal rate, regular rhythm, normal S1, S2, no murmurs, rubs, clicks or gallops Abdomen - soft, non tender on palpation, nondistended, no masses or hepatosplenomegaly, bowel soundsnormal, normal to percussion, no guarding or rebound. No costervertebral angle tenderness Neurological - alert, oriented, normal speech, no gross focal findings or movement disorder noted; very unsteady gait Extremities - dorsalis pedis pulses normal, no pedal edema, no clubbing or cyanosis [place] noted left medial second toe. ASSESSMENT/PLAN: Establishment of care. Health maintenance recommendations and screening discussed. ICD-9-CM ICD-10-CM 1. Memory problem 780.93 R41.3 THYROID STIMULATING HORMONE VITAMIN B12 / FOLATE VITAMIN B12 / FOLATE THYROID STIMULATING HORMONE 2. Smoldering multiple myeloma (HCC) 203.00 C90.00 CBC NO DIFFERENTIAL CBC NO DIFFERENTIAL 3. Malignant neoplasm of urinary bladder, unspecified site (HCC) 188.9 C67.9 4. Arthritis of both knees 716.96 M17.0 5. Vegetarian V49.89 Z78.9 VITAMIN B12 / FOLATE VITAMIN B12 / FOLATE 6. Mixed hyperlipidemia 272.2 E78.2 LIPID PROFILE COMPREHENSIVE METABOLIC PANEL COMPREHENSIVE METABOLIC PANEL LIPID PROFILE 7. Osteoporosis, unspecified osteoporosis type, unspecified pathological fracture presence 733.00 M81.0 8. Cervicalgia 723.1 M54.2 9. Hypertension, unspecified type 401.9 I10 COMPREHENSIVE METABOLIC PANEL COMPREHENSIVE METABOLIC PANEL 10. Hyperlipidemia, unspecified hyperlipidemia type 272.4 E78.5 LIPID PROFILE LIPID PROFILE I spent 20-30 minutes after her appointment reviewing records that I could fine on CareEverywhere toupdate her medications, allergies, history. Laboratory tests ordered as above No med changes made today. Release for prior records signed. Follow up 1 month. Patient Instructions Welcome to [facility]. I encourage you to sign up for e-EDMdesigner for on-line access. We have a lot of information to gather, including your med list and allergies. I had you sign a release of information from your other doctors. I ordered laboratory tests today and will send you results. DIET AND EXERCISE: Exercise is recommended 150 minutes weekly: 30 minutes five days a week of moderate exercise such as walking. In addition is it recommended you have two days weekly of working all your major muscle groups (arms, legs) such as with weight lifting or other exercise. I recommend a well balanced healthy diet, portion control, drink plenty of fluids. The Mediterranean diet is an excellent diet. Be sure to get adequate sleep at night, 8 hours. If you cannot make an appointment please call to cancel 24 hours in advance so that appointment timecan be made available for another person. Author: Miriam Rubio MD 12/23/2018 13:09 documented in this encounter Plan of Treatment Name Type Priority Associated Diagnoses Date/Time LIPID PROFILE Lab Routine Hyperlipidemia, 12/23/2018 11:59 AM unspecified hyperlipidemia EDT type Mixed hyperlipidemia COMPREHENSIVE METABOLIC Lab Routine Hypertension, unspecified 12/23/2018 11 :59 AM PANEL type EDT Mixed hyperlipidemia CBC NO DIFFERENTIAL Lab Routine Smoldering multiple 12/23/2018 11:59 AM myeloma (HCC) EDT THYROID STIMULATING Lab Routine Memory problem 12/23/2018 11:59 AM HORMONE EDT VITAMIN B12 / FOLATE Lab Routine Memory problem 12/23/2018 11:59 AM Vegetarian EDT Name Type Priority Associated Diagnoses Order Schedule LIPID PROFILE Lab Routine Hyperlipidemia, Expected: 12/23/2018 unspecified hyperlipidemia (Approximate), type Expires: 12/24/2019 Mixed hyperlipidemia COMPREHENSIVE METABOLIC Lab Routine Hypertension, unspecified Expected: PANEL type (Approximate), Mixed hyperlipidemia Expires: 12/24/2019 CBC NO DIFFERENTIAL Lab Routine Smoldering multiple Expected: 12/23/2018 myeloma (HCC) (Approximate), Expires: 12/24/2019 THYROID STIMULATING Lab Routine Memory problem Expected: 12/23/2018 HORMONE (Approximate), Expires: 12/24/2019 VITAMIN B12 / FOLATE Lab Routine Memory problem Expected: 12/23/2018 Vegetarian (Approximate), Expires: 12/24/2019 Health Maintenance Due Date Last Done Comments MEDICARE ANNUAL WELLNESS VISIT 1935 ZOSTER IMMUNIZATION SERIES (1 of 09/30/1985 2) FALL RISK ASSESSMENT 09/30/2000 PNEUMOCOCCAL 65+YRS (1 of 2 - 09/30/2000 PCV13) INFLUENZA VACCINE (#1) 2018 DEPRESSION SCREENING 12/24/2019 12/23/2018 HPV IMMUNIZATION SERIES Aged Out No longer eligible based on patient's age to complete this topic MENINGOCOCCAL VACCINE IMM Aged Out No longer eligible based on patient's age to complete this topic documented as of this encounter Goals Goal Patient Goal Associated Recent Patient-Stated? Author Type Problems Progress Blood Pressure Blood 138/80 No Ramiro, < 150/90 Pressure (12/23/2018 Miriam Cox, 11:09 AM EDT) Note: This is an individualized treatment (blood pressure) goal for Ernestina Gonzalez: Displayed above (on the left) is your goal for blood pressure control. Your most recent blood pressure is also shown above, on the right. You should try to achieve blood pressures that are lower than your goal listed above (on the left). Weight loss vs. 18 Lifestyle 0 (12/23/2018 11:09 AM Miriam Davison mo max (lbs) >= 10 EDSukumar ORTIZ Note: This is an individualized lifestyle goal for Ernestina Gonzalez: Your body mass index (BMI) is more than 30. You should lose weight. A reasonable starting goal is to lose 10 pounds. Displayed above is how many pounds you have lost thus far towards your 10 pound weight loss goal. Take all prescribed medications as Self-management Miriam Davison MD directed Note: This is an individualized self-management goal for Ernestina Gonzalez: Please take all prescribed medications as directed. 1. Do not skip doses. If you cannot afford your medications, talk with your doctor. 2. Use a pill reminder system such as a pill box if needed. Your pharmacist can help you with this. 3. Contact your Pharmacy 5 days before your medication runs out. If you cannot take your medications for any reasons, talk with your doctor. 4. Please bring all of your medication bottles and inhalers (or a list of all your medications/inhalers) with you to every visit. Potential barriers to meeting all of your care plan goals will continue to be addressed on an ongoing basis. documented as of this encounter Results Not on filedocumented in this encounter Visit Diagnoses Diagnosis Memory problem - Primary Memory loss Smoldering multiple myeloma (HCC) Multiple myeloma, without mention of having achieved remission Malignant neoplasm of urinary bladder, unspecified site (HCC) Arthritis of both knees Unspecified arthropathy, lower leg Vegetarian Other specified conditions influencing health status Mixed hyperlipidemia Osteoporosis, unspecified osteoporosis type, unspecified pathological fracture presence Cervicalgia Hypertension, unspecified type Hyperlipidemia, unspecified hyperlipidemia type documented in this encounter Insurance Payer Benefit Plan / Subscriber ID Effective Dates Phone Address Type Group MEDICARE MEDICARE PART A xxxxxxxxxxx 2000-Present Medicare & B [facility] xxxxxxxxxxx 2018-Present [employer] OPTIONS Guarantor Name Account Type Relation to Date of Phone Billing Patient Address Ernestina Gonzalez Personal/Family 1935 [address] (Home) [place], [place] [phone] [id number] (Work) documented as of this encounter
[2019-01-21] MEDS ORDERED: Cephalexin CAP* 500 MG PO ONE (16:08)
== END 2019-01-21 16:30 | disposition home or self-care (01) ==
LOC: UCEAST 14:48
DX: L03.031 Cellulitis of right toe (principal); Z88.1 Allergy status to other antibiotic agents; Z91.041 Radiographic dye allergy status; Z88.0 Allergy status to penicillin; Z88.7 Allergy status to serum and vaccine; Z88.8 Allergy status to other drugs, medicaments and biological substances; Z91.048 Other nonmedicinal substance allergy status; Z87.891 Personal history of nicotine dependence
CPT/HCPCS: 99212; A9270-GY; G0463

== ENCOUNTER 2019-01-25 13:14 | Emergency (ER) | payer MEDICARE ==
--- OUTSIDE RECORDS SUMMARY | 2019-01-25 14:01 | XMS REPORT | Continuity of Care Document ---
:1935 Author Organization [facility] Support Name Relationship Address Phone KIMI SANDY spouse [address] [place] [address] KIMI SANDY spouse [address] [place] [address] Allergies and Intolerances No Allergy Data in the System Medications No Known Medications Medications At Time Of Discharge No data in the system Problems No Data in the system Procedures No data in the system Results Laboratory Results Order: URINE MICROSCOPIC Specimen Source: Body Site: Legend: (G,H) = High, (GG,HH,CH,#H) = Above High Threshold, (#,L) = Low, (##,CL,#L,LL) = Below Low Threshold, (C,CC,CA,#A,A) = Abnormal LOINC Test Result Flag Range Units Date 1URINE MICROSCOPIC EXAM 5821-4 1WBC #/area UrnS HPF 0-2 0-2 /HPF 01/11/2019 14:29 5808-1 1RBC # UrnS HPF NONE SEEN NONE SEEN /HPF 01/11/2019 14:29 31218-9 1Bacteria UrnS Ql Micro NONE SEEN NONE SEEN /HPF 01/11/2019 14: 29 5787-7 1Epi Cells #/area UrnS HPF FEW ! NONE SEEN /HPF 01/11/2019 14:29 Performing Lab Footnotes:[facility] - [id number] - [address] [place] [address] CALIXTO MURDOCK Microbiology Results w Susceptibilities Order: CULTURE URINE Specimen Source: Urine Body Site: Urine specimen collection, clean catchCultural Observations:Few colonies of mixed growth consistent with vaginal kierra [id number] Lab Footnotes:[facility] - [id number] - [address] [place] [address] CALIXTO [id number] Pathology Results Order:PATHOLOGY CYTOLOGY HISTOLCollected Date: 01/11/2019 12:00:00 AM HISTORY: C67.9 RECEIVED 50 CC OF CLEAR YELLOW FLUID SPECIMEN DESCRIPTION: URINE FOR CYTOLOGY IS RECEIVED SPECIMEN ADEQUACY SATISFACTORY DESCRIPTIVE DIAGNOSIS: NEGATIVE FOR MALIGNANT CELLS. BENIGN SQUAMOUS AND UROTHELIAL CELLS, SCANT NEUTROPHILS AND RARE RBCS ARE NOTED. ANGELIC GONZALEZ (ASCP) (CASE SCREENED 01/12/2019) CALIXTO MCDERMOTT M.D. 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
--- NOTE | 2019-01-25 14:08 | UC ---
Lower Extremity/Ankle HPI - History of Current Complaint Stated Complaint: TOE PAIN Time Seen by Provider: 01/25/19 14:03 Hx Obtained From: Patient Hx Last Menstrual Period: post - Allergies/Home Medications Allergies/Adverse Reactions: Allergies Allergy/AdvReac Type Severity Reaction Status Date / Time alendronate sodium Allergy Severe problem Verified 01/21/19 19:58 with teeth atorvastatin Allergy Severe Dizziness Verified 01/21/19 19:58 carbamazepine Allergy Severe Dizziness Verified 01/21/19 19:58 doxycycline Allergy Severe Dizziness Verified 01/21/19 19:58 enalapril Allergy Severe itching, Verified 01/21/19 19:58 hives nifedipine Allergy Severe Headache Verified 01/21/19 19:58 phenobarbital Allergy Severe slow to Verified 01/21/19 19:58 wake up, dizzy tetanus toxoid, adsorbed Allergy Severe Shortness Verified 01/21/19 19:58 of Breath estradiol Allergy Intermediate itching Verified 01/21/19 19:58 hives penicillin G Allergy Intermediate states "it Verified 01/21/19 19:58 doesn't work" Sulfa (Sulfonamide Allergy Intermediate Dizziness Verified 01/21/19 19:58 Antibiotics) phenytoin Allergy unk Verified 01/21/19 19:58 NO MRIS Allergy See Comment Uncoded 01/21/19 19:58 kidney dye AdvReac Unknown Unknown Uncoded 01/21/19 19:58 Reaction Details PMH/Surg Hx/FS Hx/Imm Hx - Surgical History Surgical History: Yes Surgery Procedure, Year, and Place: BRAIN TUMOR REMOVED IN 1991. BLADDER CANCER SURGERIES X 30 OVER THE PAST 14 YEARS. 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 BILATERAL CATARACTS, hernia repair - Family History Known Family History: Positive: Hypertension, Non-Contributory - Social History Alcohol Use: None Substance Use Type: None Smoking Status (MU): Former Smoker Amount Used/How Often: 1 PPD X 14 YEARS Have You Smoked in the Last Year: No When Did the Patient Quit Smoking/Using Tobacco: 1975 - Immunization History Most Recent Influenza Vaccination: fall 2015 Discharge ED - Discharge Plan Referrals: Miriam Rubio MD [Primary Care Provider] -
[2019-01-25 14:22] VITALS: BP 129/92
--- NOTE | 2019-01-28 15:24 | UC ---
- Progress Note Progress Note: Patient was treated with Clindamycin, please call and see if wound improved as was on Keflex prior and s/p I&D. If no improvement, doxycycline will be called into pharmacy. -Laura Umanzor PAC Course/Dx - Diagnoses Provider Diagnoses: Cellulitis Discharge ED - Sign-Out/Discharge Documenting (check all that apply): Patient Departure All imaging exams completed and their final reports reviewed: No Studies - Discharge Plan Condition: Good Disposition: HOME Prescriptions: Clindamycin HCl 150 mg PO Q6H #28 capsule Patient Education Materials: Paronychia (ED), Incision and Drainage (ED) Referrals: Miriam Rubio MD [Primary Care Provider] - Additional Instructions: - Drainage of infected cuticle with pus sent for cultures - Antibiotics changed to Clindamycin, take for at least 5 more days- if symptoms completely resolved, may stop or continue for entire 7 day course if still having pain, redness, swelling. - Warm soaks in warm water, compresses as needed, abou 3-4 times a day for 10- 15 minutes. - Return with increased redness, pain, fever, chills. - Billing Disposition and Condition Condition: GOOD Disposition: Home
--- NOTE | 2019-01-28 16:35 | UC ---
- Progress Note Progress Note: Patient with toe infection, initially on Keflex without improvement, then clindamycin, however c/s Resistent to PCN, Clindamycin. ABX changed to doxycycline for treatment. Nurse called. -Laura Umanzor Course/Dx - Diagnoses Provider Diagnoses: Cellulitis Discharge ED - Sign-Out/Discharge Documenting (check all that apply): Patient Departure All imaging exams completed and their final reports reviewed: No Studies - Discharge Plan Condition: Good Disposition: HOME Prescriptions: Clindamycin HCl 150 mg PO Q6H #28 capsule Patient Education Materials: Paronychia (ED), Incision and Drainage (ED) Referrals: Miriam Rubio MD [Primary Care Provider] - Additional Instructions: - Drainage of infected cuticle with pus sent for cultures - Antibiotics changed to Clindamycin, take for at least 5 more days- if symptoms completely resolved, may stop or continue for entire 7 day course if still having pain, redness, swelling. - Warm soaks in warm water, compresses as needed, abou 3-4 times a day for 10- 15 minutes. - Return with increased redness, pain, fever, chills. - Billing Disposition and Condition Condition: GOOD Disposition: Home
--- NOTE | 2019-01-28 20:16 | UC ---
Lower Extremity/Ankle HPI - HPI Summary HPI Summary: 83 year old female presents wth swelling, tenderness, redness to right second toe. Was seen before, no drainage done, placed on Keflex. Has noted mild decrease in redness, but continues to have swelling, tenderness. No drainage, is doing soaks. no fever, chills, Good ambulation - History of Current Complaint Chief Complaint: UCSkin Stated Complaint: TOE PAIN Time Seen by Provider: 01/25/19 14:03 Hx Obtained From: Patient Hx Last Menstrual Period: post ?: No Onset/Duration: Sudden Onset, Lasting Days Severity Currently: Mild Pain Intensity: 2 Pain Scale Used: 0-10 Numeric Aggravating Factor(s): Standing Alleviating Factor(s): Rest - Allergies/Home Medications Allergies/Adverse Reactions: Allergies Allergy/AdvReac Type Severity Reaction Status Date / Time alendronate sodium Allergy Severe problem Verified 01/25/19 14:22 with teeth atorvastatin Allergy Severe Dizziness Verified 01/25/19 14:22 carbamazepine Allergy Severe Dizziness Verified 01/25/19 14:22 doxycycline Allergy Severe Dizziness Verified 01/25/19 14:22 enalapril Allergy Severe itching, Verified 01/25/19 14:22 hives nifedipine Allergy Severe Headache Verified 01/25/19 14:22 phenobarbital Allergy Severe slow to Verified 01/25/19 14:22 wake up, dizzy tetanus toxoid, adsorbed Allergy Severe Shortness Verified 01/25/19 14:22 of Breath estradiol Allergy Intermediate itching Verified 01/25/19 14:22 hives penicillin G Allergy Intermediate states "it Verified 01/25/19 14:22 doesn't work" Sulfa (Sulfonamide Allergy Intermediate Dizziness Verified 01/25/19 14:22 Antibiotics) phenytoin Allergy unk Verified 01/25/19 14:22 NO MRIS Allergy See Comment Uncoded 01/25/19 14:22 kidney dye AdvReac Unknown Unknown Uncoded 01/25/19 14:22 Reaction Details Home Medications: Home Medications Acetaminophen [Mapap] 1 tab PO ONCE PRN 01/25/19 [History Confirmed 01/25/19] PMH/Surg Hx/FS Hx/Imm Hx Previously Healthy: No - Surgical History Surgical History: Yes Surgery Procedure, Year, and Place: BRAIN TUMOR REMOVED IN 1991. BLADDER CANCER SURGERIES X 30 OVER THE PAST 14 YEARS. 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 BILATERAL CATARACTS, hernia repair - Family History Known Family History: Positive: Hypertension, Non-Contributory - Social History Alcohol Use: None Substance Use Type: None Smoking Status (MU): Former Smoker Amount Used/How Often: 1 PPD X 14 YEARS Have You Smoked in the Last Year: No When Did the Patient Quit Smoking/Using Tobacco: 1975 - Immunization History Most Recent Influenza Vaccination: fall 2015 Review of Systems All Other Systems Reviewed And Are Negative: Yes Constitutional: Negative: Fever, Chills Skin: Positive: Rash Musculoskeletal: Positive: Arthralgia, Edema, Myalgia Is Patient Immunocompromised?: No Physical Exam Triage Information Reviewed: Yes Appearance: Well-Appearing, No Pain Distress, Well-Nourished Vital Signs: Initial Vital Signs Temp 98.3 F 01/25/19 14:16 Pulse 68 01/25/19 14:16 Resp 18 01/25/19 14:16 BP 129/92 01/25/19 14:16 Pulse Ox 96 01/25/19 14:16 Vital Signs Reviewed: Yes Eyes: Positive: Conjunctiva Clear ENT: Positive: Hearing grossly normal Musculoskeletal: Positive: Strength Intact, ROM Intact, Other: - right second toe with mild erythema at distal phalanx with fluctuant collection palpable at medial nailbed, + tenderness. Full ROM without pain, cap refill < 2, PT pulses 2+, no TTP throughout midfoot, ankle withfull ROM against resistence. Neurological: Positive: Alert Psychological Exam: Normal Skin: Positive: Other - right second toe with mild erythema at distal phalanx with fluctuant collection palpable at medial nailbed, + tenderness. Full ROM without pain, cap refill < 2, PT pulses 2+, no TTP throughout midfoot, ankle withfull ROM against resistence. Procedures - Incision and Drainage Right Lower Anterior Distal Toe Instrument(s): Needle - after cleaning area with alcohol, Packing: Other - none, purulent drainage expressed and cultures. Lower Extremity Course/Dx - Course Course Of Treatment: - Drainage of infected cuticle with pus sent for cultures - Antibiotics changed to Clindamycin, take for at least 5 more days- if symptoms completely resolved, may stop or continue for entire 7 day course if still having pain, redness, swelling. - Warm soaks in warm water, compresses as needed, abou 3-4 times a day for 10- 15 minutes. - Return with increased redness, pain, fever, chills. - Differential Dx/Diagnosis Provider Diagnosis: Cellulitis Discharge ED - Sign-Out/Discharge Documenting (check all that apply): Patient Departure All imaging exams completed and their final reports reviewed: No Studies - Discharge Plan Condition: Good Disposition: HOME Prescriptions: Cephalexin CAP* [Keflex CAP*] 500 mg PO BID #12 cap Clindamycin HCl 150 mg PO Q6H #28 capsule Patient Education Materials: Paronychia (ED), Incision and Drainage (ED) Referrals: Miriam Rubio MD [Primary Care Provider] - Additional Instructions: - Drainage of infected cuticle with pus sent for cultures - Antibiotics changed to Clindamycin, take for at least 5 more days- if symptoms completely resolved, may stop or continue for entire 7 day course if still having pain, redness, swelling. - Warm soaks in warm water, compresses as needed, abou 3-4 times a day for 10- 15 minutes. - Return with increased redness, pain, fever, chills. - Billing Disposition and Condition Condition: GOOD Disposition: Home
== END 2019-01-25 14:55 | disposition home or self-care (01) ==
LOC: UCEAST 13:14
DX: L03.031 Cellulitis of right toe (principal); Z88.0 Allergy status to penicillin; Z88.2 Allergy status to sulfonamides; Z88.7 Allergy status to serum and vaccine; Z88.8 Allergy status to other drugs, medicaments and biological substances; Z88.1 Allergy status to other antibiotic agents; Z91.041 Radiographic dye allergy status; Z87.891 Personal history of nicotine dependence
CPT/HCPCS: 10060; 87070; 87077; 87186; 87205; 87640; 87641; 99212; G0463